=== PATIENT | female | born 1975 | race Hispanic/Latino ===

== ENCOUNTER 2017-10-02 06:21 | Day surgery (SDC) | payer SELFPAY ==
[2017-09-30 13:43] VITALS: BMI 25.9
[2017-10-02] MEDS ORDERED: Lactated Ringer's 1,000 ML IV ONE (07:15)
[2017-10-02] MEDS ORDERED: Silver Nitrate Topical - Stick ONE (07:36)
[2017-10-02] MEDS ORDERED: Succinylcholine 200 mg/10 ml Inj IV ONE (07:37)
[2017-10-02] MEDS ORDERED: Propofol 10 mg/ml Inj (20 ML) ONE ×4 (07:37→09:06)
[2017-10-02] MEDS ORDERED: Dexamethasone 4 mg/1 ml ONE (07:38)
[2017-10-02] MEDS ORDERED: Oxytocin 10 Units/ml Inj ONE (07:43)
[2017-10-02 07:54] LABS: HEMOGLOBIN 10.1 g/dL (12.0-16.0); MEAN CELL VOLUME 86.8 fl (81.0-99.0); MEAN CORPUSCULAR HGB CONC 33.4 g/dL (33.0-37.0); RBC 3.48 Mil/uL (3.80-5.20); RED CELL DISTRIBUTION WIDTH 12.8 % (11.5-14.5); WHITE BLOOD COUNT 10.2 K/uL (4.8-10.8)
[2017-10-02] MEDS ORDERED: Midazolam 2 MG/2 ML VIAL ONE (08:47)
[2017-10-02] MEDS ORDERED: HYDROmorphone 0.5 mg/0.5 ml ISec IVP PRN (09:26)
[2017-10-02] MEDS ORDERED: Lactated Ringer's 1,000 ML IV SCH (09:30)
[2017-10-02 11:19] VITALS: BP 100/59; PULSE 72; RESP 20; TEMP 97.5; O2SAT 96
--- NOTE | 2017-10-22 06:39 | OP ---
PROCEDURE DATE: 10/02/2017 SURGEON: Rakesh Chanel M.D. ANESTHESIA: General endotracheal. ANESTHESIOLOGIST: Jesus Tovar MD. PREOPERATIVE DIAGNOSIS: Incomplete . POSTOPERATIVE DIAGNOSIS: Incomplete . PROCEDURE: Suction D and C. COMPLICATIONS: None. SPECIMEN: Products of conception sent to Pathology. DESCRIPTION OF PROCEDURE: After adequate anesthesia was obtained, the patient was placed in the dorsal lithotomy position. She was prepped and draped. The surgeon was gowned and gloved. At this point, after taking time-out according to the hospital policy and exam under anesthesia was performed. The uterus appeared to be six to seven weeks in size. After emptying the bladder, the anterior lip of the cervix was grasped. The cervix was dilated and a #7 curette was inserted into the uterine cavity. Suction was performed obtaining scant amount of products of conception. There was no bleeding, so normal scraping was necessary. The products of conception was sent for genetic testing in regular pathology. At this point, it was checked hemostasis appeared to be excellent. Prophylactic antibiotics have been given. The patient was then awoken up and was taken to recovery room in excellent condition. Rakesh Chanel MD
== END 2017-10-02 11:16 | disposition home or self-care (01) ==
LOC: H.OPSURG 06:21
PROVIDERS: ATTEND Obstetrics & Gynecology Reproductive Endocrinology
DX: O02.1 Missed abortion (principal)
CPT/HCPCS: 36415; 59820; 85027; 86850; 86900; 88300; 88305; J0330; J0690; J1100; J2001; J2250; J2405; J2704; J2765; J3010; J7030; J7120

== ENCOUNTER 2017-10-22 07:25 | Day surgery (SDC) | payer OTHER ==
[2017-10-19 09:18] VITALS: BMI 26.2
[2017-10-22] MEDS ORDERED: Lactated Ringer's 1,000 ML IV ONE ×4 (08:30→19:00)
[2017-10-22 08:36] LABS: HEMOGLOBIN 10.3 g/dL (12.0-16.0); MEAN CELL VOLUME 87.4 fl (81.0-99.0); MEAN CORPUSCULAR HGB CONC 33.2 g/dL (33.0-37.0); RBC 3.55 Mil/uL (3.80-5.20); RED CELL DISTRIBUTION WIDTH 14.5 % (11.5-14.5); WHITE BLOOD COUNT 6.6 K/uL (4.8-10.8)
[2017-10-22] MEDS ORDERED: Bupivacaine HCl 0.5% PF (10 ml) Inj ONE (11:59)
[2017-10-22] MEDS ORDERED: Propofol 10 mg/ml Inj (20 ML) ONE (14:34)
[2017-10-22] MEDS ORDERED: Succinylcholine 200 mg/10 ml Inj IV ONE (14:34)
[2017-10-22] MEDS ORDERED: Lidocaine 4% (Laryng-O-Jet) Kit MM ONE (14:34)
[2017-10-22] MEDS ORDERED: Rocuronium 10 mg/ml (5 ml) ONE ×2 (14:34→16:01)
[2017-10-22] MEDS ORDERED: Midazolam 2 MG/2 ML VIAL ONE (15:15)
[2017-10-22] MEDS ORDERED: Neostigmine 1:1000 (1 mg/ml) Inj ONE (15:56)
[2017-10-22] MEDS ORDERED: Ropivacaine 0.5% 30ML IV ONE (17:13)
[2017-10-22] MEDS ORDERED: Oxycodone/Acetaminophen 5/325 mg Tab PO PRN (17:31)
[2017-10-22] MEDS ORDERED: Lactated Ringer's 1,000 ML IV SCH ×2 (17:45→18:00)
[2017-10-22] MEDS ORDERED: HYDROmorphone 0.5 mg/0.5 ml ISec IVP PRN (17:54)
--- NOTE | 2017-10-22 17:57 | PCM.ANESB5 ---
Transverse Abdominis Block - Transverse Abdominis Plane Date of Procedure: 10/22/17 Anesthesiologist: Guy Pre-Procedure Diagnosis: Endometriosis Post-Procedure Diagnosis: Same Procedure Performed: Transverse Abdominis Plane Nerve Block Left, Transverse Abdominis Plane Nerve Block Right - Procedure Transverse Abdominis Plane Nerve Block: The procedure was explained to the patient that it is for post-operative pain management and would be performed after surgery. Consent was obtained prior to surgery after a thorough discussion with the patient regarding the benefits and possible complications of transverse abdominis plane block. After the surgery had concluded and before the patient emerged from general anesthesia, time-out was held with the circulating nurse to re-confirm the appropriate block. With the patient in supine position, the ultrasound probe was placed transverse to the abdominal wall at the mid-axillary line above the iliac crest of the appropriate side. The skin, subcutaneous tissue, fat, external oblique muscle, internal oblique muscle, and the transverse abdominis muscle were identified. The general area of the block site was then prepped with Betadine three times. At this point, a # 21-gauge Stimuplex 4-inch needle was inserted posterior to and in plane with the ultrasound probe and directed anteriorly. Needle was advanced under direct ultrasound visualization until it reached the plane between the internal oblique and transverse abdominis muscles. After appropriate placement, 2mL of local anesthetic solution was injected. When the transverse abdominis plane was observed expanding in an ellipsoid way, the rest of the solution was slowly injected. A total of ___25___ mL of __0.5___ % _ preservative free bupivicaine with 1:200,000 epinephrine was used for this block. The needle was then removed and sterile dressing was applied. Similarly, the same procedure was performed on the other side using the same medications. The patient had stable vital signs throughout and had no untoward complications after emergence from general anesthesia in the recovery room.
[2017-10-22 20:01] VITALS: RESP 20; O2SAT 100
[2017-10-22 23:52] VITALS: BP 104/65; PULSE 60; TEMP 98.4
--- NOTE | 2017-10-23 14:17 | OP ---
PROCEDURE DATE: 10/22/2017 SURGEON: Rakesh Chanel MD [facility] GENERAL: Prabhakar Jackson MD ANESTHESIOLOGIST: Prabhakar Walsh MD ANESTHETIC: General Endo PREOPERATIVE DIAGNOSES: 1. Incapacitating pelvic pain. 2. Incapacitating abdominal pain. 3. Abnormal uterine bleeding. 4. History of pelvic endometriosis. 5. History of previous failed medical surgical therapy. 6. History of severe endometriosis and pelvic adhesions. 7. Gastrointestinal and genitourinary symptoms. 8. Rule out interstitial cystitis. 9. Adenomyosis. POSTOPERATIVE DIAGNOSES: 1. Incapacitating pelvic pain. 2. Incapacitating abdominal pain. 3. Abnormal uterine bleeding. 4. History of pelvic endometriosis. 5. History of previous failed medical surgical therapy. 6. History of severe endometriosis and pelvic adhesions. 7. Gastrointestinal and genitourinary symptoms. 8. left ovarian endometrioma 9. anterior bladder endometriosis 10. Severe pelvic endometriosis. 11. Ovarian adhesions. 12. Bowel adhesions. 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 14. Mild bilateral hydroureters. OPERATION PERFORMED: 1. Examination under anesthesia. 2. Video_assisted hysteroscopy. 3. Hysteroscopic septoplasty. 4. Robotic da Chris laparoscopy. 5. Enterolysis. 6. Bilateral ureterolysis. 7. Bilateral salpingo_ovariolytis. 8. Multiple peritoneal biopsies and excision of endometriosis. 9. Treatment of endometriosis. 10. Shaving of endometriosis of the bowel. 11. Cystoscopy. 12. Bilateral ureteral catheterization and injection of IC-Green dye. 13. Excision of left ovarian endometrioma , ovarian cystectomy Dr. Jackson from General Surgery was consulted to perform appendectomy and he will dictate that separately. COMPLICATIONS: None. SAMPLES: anterior bladder left cul de sac right sul de sac aterior rectal left endometrioma right and left periureteral DRAINS: ESTIMATED BLOOD LOSS: Minimal. FINDINGS: Genitalia: normal, external genitalia, cervix normal without lesions or polyps. Hysteroscopy showed evidence of a small septum of the fundus of the uterus and no other lesions visualized. Cystoscopy was performed to rule out endometriosis of bladder mucosa and also interstitial cystitis, also injury. The bladder was normal with no evidence of stone, trigonitis or cystitis. Positive jet flow visualized in both ureters. Laparoscopy was normal, gallbladder was normal, liver edges appeared to be normal. Ascending colon and transverse were normal. The appendix appeared to be abnormal with both fibrosis and thickening. There was evidence of severe adhesions, fibrosis and endometriosis of the rectovaginal septum and attachment of the bowel to the posterior aspect of the uterus and to both the right and left adnexa. Both ovaries were severely attached to the posterior aspect of the ureters with endometriosis and adhesions. Fallopian tubes appeared to have some inflammatory changes of adhesions, but overall appeared to be normal. Both ovaries appeared to be involved with scar. 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 There was also evidence of mild bilateral hydroureters. CONSENT: The patient had been thoroughly evaluated and counseled regarding pros and cons of the procedure, the reasonable alternative, and the possible complications. She understood and accepted the risks involved. Appropriate literature was provided to the patient. The patient was in understanding that given her history and presurgical exam, she knows that she was a high risk and average patient. She accepted all the risks involved and all the questions had been answered to her satisfaction. DESCRIPTION OF PROCEDURE: Initiation of the case: After adequate anesthesia was obtained, the patient was placed in the dorsal lithotomy position with extreme care of placement of the patient without hyperextension or hyperflexing the hips. At this point, the patient was prepped and draped, the surgeon was gowned and gloved. A time- out was taken according to the hospital procedure and the procedure was started. At this point, we performed the cystoscopy and bilateral ureteral catheterization. At this point we performed cystoscopy: A cystoscope was inserted into the bladder, under direct visualization and the bladder was visualized. The bladder was free of lesions, tumors. There was no evidence of interstitial cystitis, and there was only a mild amount of trigonitis. At this point, both ureters were identified and appeared to be in normal anatomical position. At this point, utilizing an open-ended 5-Cambodian catheter, the left ureter was catheterized all the way to the distal ureter, and a 5 mL of IC-Green were injected into the distal ureter. Similarly, on the contralateral ureter, the ureter was catheterized all the way to the distal ureter, and a 5 mL of IC-Green were injected into the distal ureter. At this point, the stents were removed, and the hysteroscope was removed and a 16- Cambodian Ferraro was placed into the bladder. At this point, we proceeded with a hysteroscopy: A speculum was placed in the vagina, and the anterior lip of the cervix was grasped. The cervix was dilated and a hysteroscope was inserted into the cavity. The cavity appeared to be of normal size, but there was evidence of a subseptum at the top of the uterus. At this point, we proceeded with excision of uterine septum. Once the septum was identified, the endoscopic scissors were inserted into the uterine cavity and a progressive dissection of the septum was performed with great care not to perforate the uterus and not to cause any bleeding. The procedure was basically bloodless and the septum was excised. At this point, we proceeded with placement of trocars and docking of the Da Chris Xi robot The surgeons were re-gowned and re-gloved, and an open laparoscopy was performed by making an incision below the umbilicus, and the fascia was incised , and the peritoneum was entered in the blunt fashion. The cannula was inserted and the abdomen was insufflated, and under direct visualization 3 additional ports were inserted, left upper quadrant, left mid quadrant and right upper quadrant. At this point, the da Chris Xi robot was brought into the field and docked, and the instruments were inserted under direct visualization. With extreme care not to injure the bowel or any other area. As per the dictation, the upper abdomen appeared to be normal with no evidence of any lesions. The pelvis had the findings described above, which included significant adhesions, fibrosis of the posterior cul-de-sac, significant endometriosis with deep endometriosis nodules. Both ovary adherent to both the ovarian fossas and the posterior aspect of the uterus with significant inflammatory changes. At this point, we proceeded with the left ureterolysis. The ureter appeared to dilated and it was clearly identified utilizing fluorescent technology. An incision was made on the peritoneum at the top of the pelvic brim, and incision was then carried down all the way opening the peritoneum and all the way down from the pelvic brim all the way down to the ovarian fossa extending the incision below the ovary. It was a progressive dissection where the ureter was progressively lateralized and the peritoneum medialized, thus freeing the ureter all the way down to the crossing of the uterine vessels. After this was done and the ureter was freed and lateralized and a large area of peritoneum, which had been opened up was excised and sent to pathology. At this point, after ureter had been identified, we were able to elevate the ovary and dissect it from the pelvic side wall in the ovarian fossa At this point, we proceeded with the left ovariolysis. The ovary was gently dissected and elevated off the ovarian fossa and area of fibrosis of endometriosis were exposed. At this point, we proceeded with the right ureterolysis. The ureter was identified and again utilizing florescent technology, the retroperitoneal space was entered and a full dissection was performed entering the retroperitoneal space and dissecting the ureter, removing the ureter laterally and the peritoneum medially. A full dissection was performed all the way down to the ovarian fossa, on the crossing of the uterine arteries. A large area of peritoneum containing endometriosis was also dissected and sent to Pathology. At this point, we proceeded with a right ovariolysis. The ovary was progressively elevated, areas of deep endometriosis and superficial endometriosis were dissected out and the ovary was finally elevated. At this point, we proceeded with a treatment of endometriosis and excision of endometriosis. On the left hand side, a large area of peritoneum, where containing endometriosis was excised in the ovarian fossa with the upper margin of the excision at the utero_ovarian ligament all the way down to the uterosacral ligament. Large areas of fibrosis were identified in posterior cul-de-sac and the rectovaginal space was affected with endometriosis and severe fibrosis. The rectovaginal area was then dissected and the space was opened, and we were able to dissect the rectum away from the posterior aspect of the cervix. Additional areas of endometriosis were dissected from the posterior aspect of the Uterus. At this point, we proceeded with excision of the endometriosis on the right hand side where similarly in a full excision of endometriosis was performed by performing incision from starting at the right utero_ovarian ligament all the way down to the right uterosacral ligament. At this point, it was checked for hemostasis and appeared to be excellent. All the endometriosis had been excised. At this point, we performed the ablation of inflamed peritoneum, utilizing the J_plasma device. There were inflammatory areas in the posterior aspect of the uterus, which were not endometriotic, but they were purely inflammatory and these were not excisable, as they were not endometriotic. Therefore, we proceeded with ablation of such area utilizing the J plasma. Once this was done, it was checked for hemostasis and appeared to be excellent. The consult was handed to Dr. Jackson, who performed the appendectomy and he will dictate that separately. After this was done, it was checked for hemostasis and appeared to be excellent. The pelvis was irrigated. The da Chris Xi robot was removed. The abdomen desufflated. The instruments were removed. The incisions were closed in layers with 0 PDS for the fascia and 4-0 Monocryl for the skin. The patient was awakened up and taken to recovery room in excellent condition. Rakesh Chanel MD [facility]ERCaitlyn
--- NOTE | 2017-11-05 11:46 | PCM.OP ---
Operative Report - Operative Report Date of Surgery/Procedure: 10/22/17 Time of Surgery/Procedure: 08:00 Surgeon: Dr. Prabhakar Jackson Insurance Claims Examiner: Dr. Rakesh Chanel Anesthesia/Sedation: general/Dr. Tovar Pre-Operative Diagnosis: abdominal pain and endometriosis Post-Operative Diagnosis: same Indication for Surgery: as above Operative Findings: as above Procedure/Operation Description: 1-Excision perirectal endometriosis. 2- Appendectomy. Brief History: This 42 year old woman was already brought to the operating room by Dr. Chanel when he noted intestinal involvement. Intraoperative consultation was requested. Description of the Procedure: Dr. Chanel had already initiated the robotic procedure (separate dictation Dr. Wen). After takoing control of the robotic console the lesion on the anterior rectal wall was evaluated and incised circumferentially with electrocautery then using blunt and sharp dissection and the lesion was excised en-bloc and sent to pathology separately. Our attention then turned to the apppendix and with anterior traction the mesentery was dessicated with particular attetnion to the appediceal artety. With the base dissected three 3- 0 loop vicryl endoloops were used to ligate the base. It was transected and sent separately to pathology. Hemostasis was deemed adequate. The operation was then turned back over to Dr. Wen (separate dictation). Estimated Blood Loss: 5 cc Complications: none Specimen: 1-rectum. 2-appendix Discharge & Condition: stable
== END 2017-10-22 22:00 | disposition home or self-care (01) ==
LOC: H.OPSURG 07:25 → H.PEDS 19:41 → H.OPSURG 22:00
PROVIDERS: ATTEND Obstetrics & Gynecology Reproductive Endocrinology
DX: N80.0 Endometriosis of uterus (principal); E03.9 Hypothyroidism, unspecified; R10.2 Pelvic and perineal pain; K66.0 Peritoneal adhesions (postprocedural) (postinfection); N13.4 Hydroureter; N73.6 Female pelvic peritoneal adhesions (postinfective); N80.3 Endometriosis of pelvic peritoneum
CPT/HCPCS: 36415; 44970; 58563; 58662; 64488; 85027; 86850; 86900; 88304; 88305; C1729; J0131; J0330; J0690; J2001; J2250; J2704; J2710; J3010; J7030; J7120